=== PATIENT | female | born 1955 | race Caucasian/White ===

== ENCOUNTER 2018-06-29 14:09 | Emergency (ER) | payer BC ==
[~2018-06-29] VITALS: Ht 175.3 cm; Wt 93.4 kg
[2018-06-29 14:19] VITALS: BP 161/43
== END 2018-06-29 15:09 | disposition home or self-care (01) ==
LOC: ER 14:09
DX: F41.9 Anxiety disorder, unspecified (principal); R56.9 Unspecified convulsions; F31.9 Bipolar disorder, unspecified; Z76.0 Encounter for issue of repeat prescription